=== PATIENT | male | born 1955 | race Caucasian/White ===

== ENCOUNTER 2016-06-11 08:59 | Emergency (ER) | payer MEDICARE, BC ==
[~2016-06-11 08:59] MED LIST: ACYC400T PO; ALDA25TA PO; FLUTISP; FLUV1INJ6 IM; TESTPOW5 TOP; TRAZ150T14 PO; VENL75CA PO; VITA50003 PO
--- NOTE | 2016-06-11 09:44 | EDDOCDS ---
Nurse's Notes [facility] Name: Adam Schmid Age: 60 yrs Sex: Male : 1955 Arrival Date: 06/11/2016 Time: 08:59 Bed Triage 2 Private MD: Daniel Larios Diagnosis: Otitis media, unspecified, left ear;Acute sinusitis Presentation: 06/11 09:03 Presenting complaint: Patient states: Pt presents with left ear pain sinus congestion dls lots of mucus x 2 weeks. Adult Sepsis Screening: The patient does not have new or worsening altered mentation. Patient's respiratory rate is less than 22. Systolic blood pressure is greater than 100. Patient has a qSOFA score of 0- Negative Sepsis Screen. Suicide/Homicide risk assessment- the patient denies having any suicidal and/or homicidal ideations and does not present with any other emotional, behavioral or mental health complaints. Status: Patient is not a sales agent financial report service or dependent. Transition of care: patient was not received from another setting of care. 09:03 Acuity: RENARD Level 4 dls 09:03 Method Of Arrival: Walkin/Carried/Asstd dls Triage Assessment: 09:09 General: Appears in no apparent distress, well developed, well nourished, well groomed, dls Behavior is cooperative. Pain: Pain currently is 1 out of 10 on a pain scale. HIV screening NA for this visit Offered previously. 09:42 EENT: Nares are clear nasal congested. kcs Historical: - Allergies: PENICILLINS; - Home Meds: 1. Effexor 75 mg Oral tab 1 tab 2 times per day 2. trazadone 75mg nightly 3. Acyclovir 500mg Oral 2 times per day 4. androgel 15mg daily 5. spironolactone 25 mg Oral tab 1 tab once daily 6. Vitamin D Oral 400 unit daily - PMHx: depression; - PSHx: none; - Social history: Smoking status: Patient/guardian denies using No barriers to communication noted, The patient speaks fluent Greek. - Family history: Not pertinent. - : The pt / caregiver states he / she is not on anticoagulants. Home medication list is obtained from the patient. - Exposure Risk Screening:: None identified. Screenin:42 Screening information is obtained from prior medical records. Fall risk: No risks kcs identified. Assistance ADL's: requires no assistance with activities of daily living. Abuse/DV Screen: The patient / caregiver reports he/she is: not in a situation that causes fear, pain or injury. Nutritional screening: No deficits noted. Advance Directives: Currently, there is no health care proxy. There is no active DNR order. There is no Power of Security Developer. home support is adequate. Assessment: 09:40 General: Appears comfortable, ill, well developed, well nourished, well groomed, kcs Behavior is cooperative, pleasant. Pain: Complains of pain in face. Awake, alert, oriented. Skin warm and dry. Moves all extremities. Respirations unlabored. No apparent distress. The patient / caregiver is instructed regarding the plan of care and ED course. Physical assessment to be completed by KACI/MEAGAN. Vital Signs: 09:00 BP 132 / 79; Pulse 102; Resp 18 S; Temp 97.3(O); Pulse Ox 99% on R/A; Weight 102.51 kg dd6 (R); Height 6 ft. 0 in. (182.88 cm) (R); 09:00 Body Mass Index 30.65 (102.51 kg, 182.88 cm) dd6 Vitals: 09:00 Log In Time: June 11, 2016 at 08:58. dd6 ED Course: 09:00 Patient visited by Yao Colindres PCA. dd6 09:00 Daniel Larios MD is Private Physician. dd6 09:00 Patient moved to Waiting dd6 09:01 Patient moved to Pre RCE dd6 09:05 Triage Initiated dls 09:10 Patient moved to Triage 2 dls 09:12 Rodrigo Larsen PA-C [facility]. dk1 09:12 Radha Lizarraga MD is Attending Physician. dk1 09:12 Patient visited by Rodrigo Larsen PA-C. dk1 09:27 Daniel Larios MD is Referral Physician. dk1 09:40 Patient has correct armband on for positive identification. kcs 09:41 No IV's were initiated during this patient's visit. No procedures done that require kcs assistance. 09:42 [facility] Payment Agreement was scanned into [employer] and attached to record. lg Order Results: There are currently no results for this order. Outcome: 09:28 Discharge ordered by Provider. dk1 09:40 The following High Risk Discharge criteria are identified: None. Discharged to home kcs ambulatory. Condition: stable. Discharge instructions given to patient, Instructed on discharge instructions, follow up and referral plans. medication usage, Demonstrated understanding of instructions, medications, Pt was receptive of discharge instructions/ teaching. Prescriptions given X 4. No special radiology studies were completed. 09:41 Discharge Assessment: Patient awake, alert and oriented x 3. No cognitive and/or kcs functional deficits noted. Patient verbalized understanding of disposition instructions. Patient awake and alert. patient administered narcotics - no. Property sent home with patient. 09:43 Patient left the ED. kcs Signatures: Amanda Person, RN RN Susan Hickman RN RN Heather Calvin, Rodrigo Flores lg, PA-C PA-C dk1 aYo Colindres, OSVALDO MEDICAL SECRETARY RECEPTIONIST dd6 MTDKay
--- NOTE | 2016-06-11 09:44 | EDDOCDS ---
Physician Documentation [facility] Name: Adam Schmid Age: 60 yrs Sex: Male : 1955 Arrival Date: 06/11/2016 Time: 08:59 Bed Triage 2 Private MD: Daniel Larios Disposition: 06/11/16 09:28 Discharged to Home/Self Care. Impression: Otitis media, unspecified, left ear, Acute sinusitis. - Condition is Stable. - Discharge Instructions: Otitis Media, Adult, Sinusitis, Adult. - Prescriptions for Tylenol 325 mg Oral Tablet - take 2 tablet by ORAL route every 6 hours as needed; 1 bottle. Zithromax 250 mg Oral Tablet - take 1 tablet by ORAL route once daily start tomorrow; 4 tablet. Mucinex 600 mg - take 1 tablet by ORAL route 2 times per day; 30 tablet. benzonatate 200 mg Oral Capsule - take 1 capsule by ORAL route 3 times per day As needed; 30 capsule. - Medication Reconciliation, Local Pharmacy Hours form. - Follow up: Daniel Larios MD; When: 2 - 3 days; Reason: Recheck today's complaints, Continuance of care. Follow up: Emergency Department; When: As needed; Reason: Worsening of conditions. - Problem is new. - Symptoms are unchanged. Historical: - Allergies: PENICILLINS; - Home Meds: 1. Effexor 75 mg Oral tab 1 tab 2 times per day 2. trazadone 75mg nightly 3. Acyclovir 500mg Oral 2 times per day 4. androgel 15mg daily 5. spironolactone 25 mg Oral tab 1 tab once daily 6. Vitamin D Oral 400 unit daily - PMHx: depression; - PSHx: none; - Social history: Smoking status: Patient/guardian denies using No barriers to communication noted, The patient speaks fluent Marshallese. - Family history: Not pertinent. - : The pt / caregiver states he / she is not on anticoagulants. Home medication list is obtained from the patient. - Exposure Risk Screening:: None identified. Vital Signs: 06/11 09:00 BP 132 / 79; Pulse 102; Resp 18 S; Temp 97.3(O); Pulse Ox 99% on R/A; Weight 102.51 kg dd6 / 226 lbs (R); Height 6 ft. 0 in. (182.88 cm) (R); 09:00 Body Mass Index 30.65 (102.51 kg, 182.88 cm) dd6 MDM: 09:31 Financial registration complete. lg 09:42 [facility] Payment Agreement was scanned into [employer] and attached to record. Signatures: Amanda Person, RN RN kcs Susan Mohan RN RN dls Heather Patel, Reg Reg lg Rodrigo Larsen, SAMIA PALandon dk1 The chart was reviewed and I authenticate all verbal orders and agree with the evaluation and treatment provided.Attachments: 09:42 [facility] Payment Agreement lg MTDD
--- NOTE | 2016-06-13 10:43 | EDDOCDS ---
Physician Documentation [facility] Name: Adam Schmid Age: 60 yrs Sex: Male : 1955 Arrival Date: 06/11/2016 Time: 08:59 Bed Triage 2 Private MD: Daniel Larios Disposition: 06/11/16 09:28 Discharged to Home/Self Care. Impression: Otitis media, unspecified, left ear, Acute sinusitis. - Condition is Stable. - Discharge Instructions: Otitis Media, Adult, Sinusitis, Adult. - Prescriptions for Tylenol 325 mg Oral Tablet - take 2 tablet by ORAL route every 6 hours as needed; 1 bottle. Zithromax 250 mg Oral Tablet - take 1 tablet by ORAL route once daily start tomorrow; 4 tablet. Mucinex 600 mg - take 1 tablet by ORAL route 2 times per day; 30 tablet. benzonatate 200 mg Oral Capsule - take 1 capsule by ORAL route 3 times per day As needed; 30 capsule. - Medication Reconciliation, Local Pharmacy Hours form. - Follow up: Daniel Larios MD; When: 2 - 3 days; Reason: Recheck today's complaints, Continuance of care. Follow up: Emergency Department; When: As needed; Reason: Worsening of conditions. - Problem is new. - Symptoms are unchanged. Historical: - Allergies: PENICILLINS; - Home Meds: 1. Effexor 75 mg Oral tab 1 tab 2 times per day 2. trazadone 75mg nightly 3. Acyclovir 500mg Oral 2 times per day 4. androgel 15mg daily 5. spironolactone 25 mg Oral tab 1 tab once daily 6. Vitamin D Oral 400 unit daily - PMHx: depression; - PSHx: none; - Social history: Smoking status: Patient/guardian denies using No barriers to communication noted, The patient speaks fluent Grenadian. - Family history: Not pertinent. - : The pt / caregiver states he / she is not on anticoagulants. Home medication list is obtained from the patient. - Exposure Risk Screening:: None identified. Vital Signs: 06/11 09:00 BP 132 / 79; Pulse 102; Resp 18 S; Temp 97.3(O); Pulse Ox 99% on R/A; Weight 102.51 kg dd6 / 226 lbs (R); Height 6 ft. 0 in. (182.88 cm) (R); 09:00 Body Mass Index 30.65 (102.51 kg, 182.88 cm) dd6 MDM: 09:31 Financial registration complete. lg 09:42 [facility] Payment Agreement was scanned into [employer] and attached to record. lg 14:44 T-Sheet-- Draft Copy was scanned into [employer] and attached to record. gb Signatures: Amanda Person RN RN Susan Hickman RN RN dls Tanika Ignacio, Reg Reg gb Heather Patel, Reg Reg lg Rodrigo Larsen, PAElanaC PA-Gabriela calderón The chart was reviewed and I authenticate all verbal orders and agree with the evaluation and treatment provided.Attachments: 09:42 [facility] Payment Agreement lg 14:44 T-Sheet-- Draft Copy gb Chart Complete MTDD
--- NOTE | 2016-06-13 10:43 | EDDOCDS ---
Physician Documentation [facility] Name: Adam Schmid Age: 60 yrs Sex: Male : 1955 Arrival Date: 06/11/2016 Time: 08:59 Bed Triage 2 Private MD: Daniel Larios Disposition: 06/11/16 09:28 Discharged to Home/Self Care. Impression: Otitis media, unspecified, left ear, Acute sinusitis. - Condition is Stable. - Discharge Instructions: Otitis Media, Adult, Sinusitis, Adult. - Prescriptions for Tylenol 325 mg Oral Tablet - take 2 tablet by ORAL route every 6 hours as needed; 1 bottle. Zithromax 250 mg Oral Tablet - take 1 tablet by ORAL route once daily start tomorrow; 4 tablet. Mucinex 600 mg - take 1 tablet by ORAL route 2 times per day; 30 tablet. benzonatate 200 mg Oral Capsule - take 1 capsule by ORAL route 3 times per day As needed; 30 capsule. - Medication Reconciliation, Local Pharmacy Hours form. - Follow up: Daniel Larios MD; When: 2 - 3 days; Reason: Recheck today's complaints, Continuance of care. Follow up: Emergency Department; When: As needed; Reason: Worsening of conditions. - Problem is new. - Symptoms are unchanged. Historical: - Allergies: PENICILLINS; - Home Meds: 1. Effexor 75 mg Oral tab 1 tab 2 times per day 2. trazadone 75mg nightly 3. Acyclovir 500mg Oral 2 times per day 4. androgel 15mg daily 5. spironolactone 25 mg Oral tab 1 tab once daily 6. Vitamin D Oral 400 unit daily - PMHx: depression; - PSHx: none; - Social history: Smoking status: Patient/guardian denies using No barriers to communication noted, The patient speaks fluent Bahraini. - Family history: Not pertinent. - : The pt / caregiver states he / she is not on anticoagulants. Home medication list is obtained from the patient. - Exposure Risk Screening:: None identified. Vital Signs: 06/11 09:00 BP 132 / 79; Pulse 102; Resp 18 S; Temp 97.3(O); Pulse Ox 99% on R/A; Weight 102.51 kg dd6 / 226 lbs (R); Height 6 ft. 0 in. (182.88 cm) (R); 09:00 Body Mass Index 30.65 (102.51 kg, 182.88 cm) dd6 MDM: 09:31 Financial registration complete. lg 09:42 [facility] Payment Agreement was scanned into [employer] and attached to record. lg 14:44 T-Sheet-- Draft Copy was scanned into [employer] and attached to record. gb Signatures: Amanda Person RN RN Susan Hickman RN RN dls Tanika Ignacio, Reg Reg gb Heather Patel, Reg Reg lg Rodrigo Larsen, PAElanaC PA-Gabriela calderón The chart was reviewed and I authenticate all verbal orders and agree with the evaluation and treatment provided.Attachments: 09:42 [facility] Payment Agreement lg 14:44 T-Sheet-- Draft Copy gb Chart Complete MTDD
--- NOTE | 2016-06-13 10:43 | EDDOCDS ---
Nurse's Notes [facility] Name: Adam Schmid Age: 60 yrs Sex: Male : 1955 Arrival Date: 06/11/2016 Time: 08:59 Bed Triage 2 Private MD: Daniel Larios Diagnosis: Otitis media, unspecified, left ear;Acute sinusitis Presentation: 06/11 09:03 Presenting complaint: Patient states: Pt presents with left ear pain sinus congestion dls lots of mucus x 2 weeks. Adult Sepsis Screening: The patient does not have new or worsening altered mentation. Patient's respiratory rate is less than 22. Systolic blood pressure is greater than 100. Patient has a qSOFA score of 0- Negative Sepsis Screen. Suicide/Homicide risk assessment- the patient denies having any suicidal and/or homicidal ideations and does not present with any other emotional, behavioral or mental health complaints. Status: Patient is not a community service aide or dependent. Transition of care: patient was not received from another setting of care. 09:03 Acuity: RENARD Level 4 dls 09:03 Method Of Arrival: Walkin/Carried/Asstd dls Triage Assessment: 09:09 General: Appears in no apparent distress, well developed, well nourished, well groomed, dls Behavior is cooperative. Pain: Pain currently is 1 out of 10 on a pain scale. HIV screening NA for this visit Offered previously. 09:42 EENT: Nares are clear nasal congested. kcs Historical: - Allergies: PENICILLINS; - Home Meds: 1. Effexor 75 mg Oral tab 1 tab 2 times per day 2. trazadone 75mg nightly 3. Acyclovir 500mg Oral 2 times per day 4. androgel 15mg daily 5. spironolactone 25 mg Oral tab 1 tab once daily 6. Vitamin D Oral 400 unit daily - PMHx: depression; - PSHx: none; - Social history: Smoking status: Patient/guardian denies using No barriers to communication noted, The patient speaks fluent Yoruba. - Family history: Not pertinent. - : The pt / caregiver states he / she is not on anticoagulants. Home medication list is obtained from the patient. - Exposure Risk Screening:: None identified. Screenin:42 Screening information is obtained from prior medical records. Fall risk: No risks kcs identified. Assistance ADL's: requires no assistance with activities of daily living. Abuse/DV Screen: The patient / caregiver reports he/she is: not in a situation that causes fear, pain or injury. Nutritional screening: No deficits noted. Advance Directives: Currently, there is no health care proxy. There is no active DNR order. There is no Power of Dental Resident. home support is adequate. Assessment: 09:40 General: Appears comfortable, ill, well developed, well nourished, well groomed, kcs Behavior is cooperative, pleasant. Pain: Complains of pain in face. Awake, alert, oriented. Skin warm and dry. Moves all extremities. Respirations unlabored. No apparent distress. The patient / caregiver is instructed regarding the plan of care and ED course. Physical assessment to be completed by KACI/MEAGAN. Vital Signs: 09:00 BP 132 / 79; Pulse 102; Resp 18 S; Temp 97.3(O); Pulse Ox 99% on R/A; Weight 102.51 kg dd6 (R); Height 6 ft. 0 in. (182.88 cm) (R); 09:00 Body Mass Index 30.65 (102.51 kg, 182.88 cm) dd6 Vitals: 09:00 Log In Time: June 11, 2016 at 08:58. dd6 ED Course: 09:00 Patient visited by Yao Colindres PCA. dd6 09:00 Daniel Larios MD is Private Physician. dd6 09:00 Patient moved to Waiting dd6 09:01 Patient moved to Pre RCE dd6 09:05 Triage Initiated dls 09:10 Patient moved to Triage 2 dls 09:12 Rodrig[facility] Larsen [facility]-C [facility] dk1 09:12 Radha Lizarraga MD is Attending Physician. dk1 09:12 Patient visited by Rodrigo Larsen PA-C. dk1 09:27 Daniel Larios MD is Referral Physician. dk1 09:40 Patient has correct armband on for positive identification. kcs 09:41 No IV's were initiated during this patient's visit. No procedures done that require kcs assistance. 09:42 [facility] Payment Agreement was scanned into [employer] and attached to record. lg 14:44 T-Sheet-- Draft Copy was scanned into [employer] and attached to record. gb Order Results: There are currently no results for this order. Outcome: 09:28 Discharge ordered by Provider. dk1 09:40 The following High Risk Discharge criteria are identified: None. Discharged to home kcs ambulatory. Condition: stable. Discharge instructions given to patient, Instructed on discharge instructions, follow up and referral plans. medication usage, Demonstrated understanding of instructions, medications, Pt was receptive of discharge instructions/ teaching. Prescriptions given X 4. No special radiology studies were completed. 09:41 Discharge Assessment: Patient awake, alert and oriented x 3. No cognitive and/or kcs functional deficits noted. Patient verbalized understanding of disposition instructions. Patient awake and alert. patient administered narcotics - no. Property sent home with patient. 09:43 Patient left the ED. kcs Signatures: Amanda Person, RN RN Susan Hickman RN RN Tanika Muhammad, Reg Reg gb Heather Patel, Reg Reg lg Rodrigo Larsen, PA-C PA-C dk1 Yao Colindres, PILOT PLANT OPERATOR PILOT PLANT OPERATOR dd6 Chart Complete MTDD
== END 2016-06-11 09:43 | disposition home or self-care (01) ==
LOC: M ED 08:59
DX: H66.93 Otitis media, unspecified, bilateral (principal); J01.90 Acute sinusitis, unspecified; F32.9 Major depressive disorder, single episode, unspecified; Z79.899 Other long term (current) drug therapy; Z88.0 Allergy status to penicillin

== ENCOUNTER → 2016-06-19 | Outpatient (REF) | payer MEDICARE, BC | LOC: M SFHCPLAZ 11:33 | PROVIDERS: ATTEND Family Medicine | DX: N39.43 Post-void dribbling (principal) ==

== ENCOUNTER → 2016-06-20 | Outpatient (REF) | payer MEDICARE, BC | LOC: M SFHCPLAZ 16:59 | PROVIDERS: ATTEND Family Medicine | DX: N39.43 Post-void dribbling (principal) | CPT/HCPCS: 36415; G0103 ==

== ENCOUNTER → 2016-08-21 | Outpatient (REF) | payer MEDICARE, BC | LOC: M SFHCPLAZ 08:56 | PROVIDERS: ATTEND Family Medicine | DX: K12.0 Recurrent oral aphthae (principal) | CPT/HCPCS: 36415; 82607; G0463 ==

== ENCOUNTER → 2017-04-23 | Outpatient (CLI) | payer MEDICARE, BC ==
[~2017-04-23] MED LIST changes: -TRAZ150T14 PO; +TRAZ1TAB14 PO; +VITA1CAP40 PO; -VITA50003 PO
--- NOTE | 2017-04-23 11:51 | REP ---
ULTRASOUND, ABDOMINAL AORTA: Real-time sonographic evaluation of the abdominal aorta performed to evaluate for possible abdominal aortic aneurysm. There is no sonographic evidence of abdominal aortic aneurysm. Maximum AP diameter at the level of the diaphragms of the abdominal aorta is 2.4 cm, mid aspect 1.6 cm and distally 1.3 cm. The abdominal aorta at the level of the renal arteries is not well visualized due to overlying bowel gas. The common iliac arteries are normal in caliber both measuring 1 cm in AP dimension. IMPRESSION: No sonographic evidence of abdominal aortic aneurysm. However, the abdominal aorta at the level of the renal arteries is not well visualized due to overlying bowel gas. Signed by Tommy Perkins MD 04/23/2017 01:30 P
== END ==
LOC: M RAD 08:37
PROVIDERS: ATTEND Family Medicine
DX: Z13.6 Encounter for screening for cardiovascular disorders (principal)

== ENCOUNTER → 2017-05-01 | Outpatient (CLI) | payer MEDICARE, BC ==
--- NOTE | 2017-05-01 09:40 | REP ---
Clinical: Lung screening. History smoking. Comparison: None Technique: Axial low-dose noncontrast images from the thoracic inlet to the upper abdomen using lung screening technique. Findings: The lung rascon are well-aerated. A 6 mm noncalcified nodular density is identified in the basilar segment right upper lobe (image 47) along with linear fibroatelectatic changes at the lingula. Scarring along the subpleural lateral and posterior right lower lobe remains stable compared to 08/01/2010. No further consolidation, or mass lesion is appreciated. No pleural effusion/reaction or pneumothorax. Tracheobronchial tree is patent. Impression: Lung-RADS category III. 6 mm noncalcified nodule in the basilar right upper lobe and nonspecific linear changes in the lingula. Findings warrant 6-month low-dose CT reevaluation based on Fleischner Society criteria. Signed by Huey Constantino MD 05/01/2017 09:30 A
== END ==
LOC: M RAD 04-30 09:36
PROVIDERS: ATTEND Family Medicine
DX: Z87.891 Personal history of nicotine dependence (principal)

== ENCOUNTER → 2017-05-24 | Outpatient (REF) | payer MEDICARE, BC ==
[2017-05-24 12:35] LABS: ALBUMIN 3.9 GM/DL (3.2-5.2); ALBUMIN/GLOBULIN RATIO 1.15 (1.00-1.93); ALKALINE PHOSPHATASE 99 U/L (45-117); ALT/SGPT 31 U/L (12-78); ANION GAP 8 MEQ/L (8-16); AST/SGOT 18 U/L (7-37); BILIRUBIN,TOTAL 1.3 MG/DL (0.2-1.0); BLOOD UREA NITROGEN 15 MG/DL (7-18); CALCIUM LEVEL 9.2 MG/DL (8.8-10.2); CARBON DIOXIDE LEVEL 32 MEQ/L (21-32); CHLORIDE LEVEL 100 MEQ/L (98-107); CHOLESTEROL LEVEL 222 MG/DL (<200); CREATININE FOR GFR 0.91 MG/DL (0.70-1.30); GLOMERULAR FILTRATION RATE > 60.0 (>49); GLUCOSE, FASTING 92 MG/DL (80-110); POTASSIUM SERUM 3.9 MEQ/L (3.5-5.1); SODIUM LEVEL 140 MEQ/L (136-145); TOTAL PROTEIN 7.3 GM/DL (6.4-8.2); TRIGLYCERIDES LEVEL 153 MG/DL (<150)
== END ==
LOC: M SFHCPLAZ 09:31
PROVIDERS: ATTEND Family Medicine
DX: Z13.220 Encounter for screening for lipoid disorders (principal); Z51.81 Encounter for therapeutic drug level monitoring; Z12.5 Encounter for screening for malignant neoplasm of prostate; E29.1 Testicular hypofunction; E55.9 Vitamin D deficiency, unspecified; Z79.899 Other long term (current) drug therapy
CPT/HCPCS: 36415; 80053; 80061; 82306; 84403; G0103

== ENCOUNTER → 2017-08-22 | Outpatient (REF) | payer MEDICARE, BC ==
[2017-08-22 12:42] LABS: TESTOSTERONE 718 NG/DL (241-827)
[2017-08-22 12:43] LABS: ALBUMIN 3.8 GM/DL (3.2-5.2); ALBUMIN/GLOBULIN RATIO 1.23 (1.00-1.93); ALKALINE PHOSPHATASE 81 U/L (45-117); ALT/SGPT 32 U/L (12-78); AST/SGOT 17 U/L (7-37); BILIRUBIN,DIRECT 0.1 MG/DL (0.0-0.2); BILIRUBIN,TOTAL 0.6 MG/DL (0.2-1.0); CHOLESTEROL LEVEL 166 MG/DL (<200); CHOLESTEROL RISK RATIO 4.048 (<5); HDL CHOLESTEROL 41 MG/DL (>40); LDL CHOLESTEROL 101.4 MG/DL (<100); NON-HDL-C 125 MG/DL; TOTAL PROTEIN 6.9 GM/DL (6.4-8.2); TRIGLYCERIDES LEVEL 118 MG/DL (<150)
== END ==
LOC: M SFHCPLAZ 08:40
DX: E80.6 Other disorders of bilirubin metabolism (principal); E78.2 Mixed hyperlipidemia; E29.1 Testicular hypofunction
CPT/HCPCS: 84403

== ENCOUNTER 2017-10-07 09:44 | Emergency (ER) | payer MEDICARE, OTHER, BC ==
[2017-10-07] MEDS: KETOROLAC 60 MG/2 ML VIAL (J1885) IM ×2 (12:34)
== END 2017-10-07 13:11 | disposition home or self-care (01) ==
LOC: M ED 09:44
DX: M54.42 Lumbago with sciatica, left side (principal); G89.29 Other chronic pain; I10 Essential (primary) hypertension; Z87.891 Personal history of nicotine dependence; Z88.0 Allergy status to penicillin; Z79.899 Other long term (current) drug therapy
CPT/HCPCS: J1885

== ENCOUNTER 2017-10-09 10:34 | Emergency (ER) | payer MEDICARE, OTHER, BC ==
[2017-10-09] MEDS: KETOROLAC 60 MG/2 ML VIAL (J1885) IM ×2 (11:31)
== END 2017-10-09 12:00 | disposition home or self-care (01) ==
LOC: M ED 10:34
DX: M54.17 Radiculopathy, lumbosacral region (principal); M54.42 Lumbago with sciatica, left side; I10 Essential (primary) hypertension; Z79.899 Other long term (current) drug therapy; Z88.0 Allergy status to penicillin
CPT/HCPCS: J1885

== ENCOUNTER 2017-10-17 14:48 | Emergency (ER) | payer MEDICARE, OTHER, BC ==
[2017-10-17] MEDS: KETOROLAC 60 MG/2 ML VIAL (J1885) IM ×2 (16:54)
== END 2017-10-17 17:23 | disposition home or self-care (01) ==
LOC: M ED 14:48
DX: M51.36 Other intervertebral disc degeneration, lumbar region (principal); M48.061 Spinal stenosis, lumbar region without neurogenic claudication; M54.32 Sciatica, left side; I10 Essential (primary) hypertension; Z79.899 Other long term (current) drug therapy; Z88.0 Allergy status to penicillin
CPT/HCPCS: J1885

== ENCOUNTER → 2017-10-21 | Outpatient (REF) | payer MEDICARE, OTHER, BC ==
[2017-10-21 18:52] LABS: ALBUMIN 3.9 GM/DL (3.2-5.2); ALBUMIN/GLOBULIN RATIO 1.18 (1.00-1.93); ALKALINE PHOSPHATASE 99 U/L (45-117); ALT/SGPT 30 U/L (12-78); ANION GAP 4 MEQ/L (8-16); AST/SGOT 16 U/L (7-37); BILIRUBIN,TOTAL 0.6 MG/DL (0.2-1.0); BLOOD UREA NITROGEN 18 MG/DL (7-18); CARBON DIOXIDE LEVEL 32 MEQ/L (21-32); CHLORIDE LEVEL 107 MEQ/L (98-107); CREATININE FOR GFR 1.06 MG/DL (0.70-1.30); GLOMERULAR FILTRATION RATE > 60.0 (>49); GLUCOSE, FASTING 111 MG/DL (70-100); POTASSIUM SERUM 3.8 MEQ/L (3.5-5.1); SODIUM LEVEL 143 MEQ/L (136-145); TOTAL PROTEIN 7.2 GM/DL (6.4-8.2)
== END ==
LOC: M SFHCPLAZ 15:17
DX: Z79.1 Long term (current) use of non-steroidal anti-inflammatories (NSAID) (principal)
CPT/HCPCS: 80053

== ENCOUNTER → 2017-11-21 | Outpatient (REF) | payer MEDICARE, BC ==
[2017-11-21 12:31] LABS: CREATININE FOR GFR 0.91 MG/DL (0.70-1.30); GLOMERULAR FILTRATION RATE > 60.0 (>49)
[2017-11-21 12:31] LABS: BLOOD UREA NITROGEN 17 MG/DL (7-18)
== END ==
LOC: M LABDRAW1 10:27
DX: M48.061 Spinal stenosis, lumbar region without neurogenic claudication (principal)
CPT/HCPCS: 82565

== ENCOUNTER → 2018-09-04 | Outpatient (REF) | payer MEDICARE, BC ==
[~2018-09-04] MED LIST changes: -ALDA25TA PO; +CYCL10TA PO; +FISH1000 PO; +FLUT50SP12; -FLUTISP; +KETO10TAB PO; +ROBA500T PO; +SPIR1TAB34 PO; -VENL75CA PO; +VENL75CA22 PO; -VITA1CAP40 PO; +VITA200016 PO; +VITA50005 PO
[2018-09-04 16:46] LABS: HEMOGLOBIN A1c 5.8 %
[2018-09-04 16:55] LABS: ALBUMIN 3.7 GM/DL (3.2-5.2); ALT/SGPT 29 U/L (12-78); BILIRUBIN,TOTAL 0.9 MG/DL (0.2-1.0); BLOOD UREA NITROGEN 15 MG/DL (7-18); CALCIUM LEVEL 9.1 MG/DL (8.8-10.2); CARBON DIOXIDE LEVEL 33 MEQ/L (21-32); CHLORIDE LEVEL 102 MEQ/L (98-107); CHOLESTEROL LEVEL 153 MG/DL (<200); CHOLESTEROL RISK RATIO 4.135 (<5); CREATININE FOR GFR 0.98 MG/DL (0.70-1.30); GLOMERULAR FILTRATION RATE > 60.0 (>49); GLUCOSE, FASTING 111 MG/DL (70-100); HDL CHOLESTEROL 37 MG/DL (>40); LDL CHOLESTEROL 82 MG/DL (<100); NON-HDL-C 116 MG/DL; POTASSIUM SERUM 3.9 MEQ/L (3.5-5.1); SODIUM LEVEL 141 MEQ/L (136-145); TOTAL PROTEIN 6.8 GM/DL (6.4-8.2); TRIGLYCERIDES LEVEL 171 MG/DL (<150)
[2018-09-04 17:11] LABS: TOTAL 25(OH) VITAMIN D 36.3 NG/ML (30.0-100.0)
[2018-09-04 17:12] LABS: TESTOSTERONE 760 NG/DL (241-827)
== END ==
LOC: M SFHCPLAZ 14:14
PROVIDERS: ATTEND Family Medicine
DX: Z00.00 Encounter for general adult medical examination without abnormal findings (principal); Z13.1 Encounter for screening for diabetes mellitus; E78.2 Mixed hyperlipidemia; E29.1 Testicular hypofunction; E55.9 Vitamin D deficiency, unspecified; Z79.899 Other long term (current) drug therapy; R91.1 Solitary pulmonary nodule; E80.6 Other disorders of bilirubin metabolism; H81.10 Benign paroxysmal vertigo, unspecified ear; A60.00 Herpesviral infection of urogenital system, unspecified; F10.21 Alcohol dependence, in remission; F33.42 Major depressive disorder, recurrent, in full remission; F40.02 Agoraphobia without panic disorder
CPT/HCPCS: 36415; 80053; 80061; 82306; 83036; 84403; G0103; G0463

== ENCOUNTER → 2018-11-07 | Outpatient (CLI) | payer BC, MEDICARE ==
--- NOTE | 2018-11-07 17:45 | REP ---
Clinical: Abnormal lung findings. Technique: Axial noncontrast images from the thoracic inlet to the upper abdomen with coronal and sagittal re-formations. Comparison: 10/29/2017, 05/01/2017. Findings: Linear scarring at the lingula along with very small focal scarring in the right upper lobe and pleuroparenchymal changes along the lateral aspect of the right lower lung zone wall remains stable through 05/01/2017 and likely represent chronic changes. No consolidation. No new nodule or mass lesion. No pleural effusion. No pneumothorax. Tracheobronchial tree is patent. No axillary, hilar, or mediastinal adenopathy is appreciated. Further evaluation of the mediastinum demonstrates normal thoracic aorta and heart/pericardium. Minimal atherosclerotic changes. Musculoskeletal structures demonstrate age-related degenerative changes. Impression: 1. Scattered stable areas of scarring unchanged through 05/01/2017. 2. No acute mediastinal or pleuroparenchymal process otherwise appreciated. Electronically Signed by Huey Constantino MD 11/07/2018 05:36 P
== END ==
LOC: M RAD 17:11
PROVIDERS: ATTEND Internal Medicine Pulmonary Disease
DX: R91.8 Other nonspecific abnormal finding of lung field (principal)